=== PATIENT | female | born 1985 | race Caucasian/White ===

== ENCOUNTER → 2018-09-03 | Outpatient (CLI) | payer OTHER | END | disposition home or self-care (01) | LOC: MA 08:17 | PROC: BH01ZZZ Plain Radiography of Left Breast (ICD-10-PCS; principal; 2018-09-03) | PROC: BH41ZZZ Ultrasonography of Left Breast (ICD-10-PCS; 2018-09-03) | DX: N63.20 Unspecified lump in the left breast, unspecified quadrant (principal) | CPT/HCPCS: 76642; 77065 ==